=== PATIENT | male | born 1995 | race African-American/Black ===

== ENCOUNTER 2019-12-24 12:36 | Emergency (ER) | payer SELFPAY | END 2019-12-24 13:10 | disposition home or self-care (01) | LOC: BURERS 12:36 | DX: S13.9XXA Sprain of joints and ligaments of unspecified parts of neck, initial encounter (principal); V89.2XXA Person injured in unspecified motor-vehicle accident, traffic, initial encounter; F17.210 Nicotine dependence, cigarettes, uncomplicated | CPT/HCPCS: 99283; L0120 ==